=== PATIENT | female | born 1990 | race American Indian/Alaskan Native ===

== ENCOUNTER 2017-12-15 16:45 | Emergency (ER) | payer SELFPAY ==
[2017-12-15 16:54] VITALS: BP 115/87
[2017-12-15] MEDS ORDERED: ZOFRAN ODT PO ONE (18:18)
[2017-12-15] MEDS ORDERED: NORCO 7.5/325 PO ONE (18:18)
[2017-12-15] MEDS ORDERED: TRIMOX PO ONE (18:18)
--- NOTE | 2017-12-15 18:23 | Emergency Department Report ---
ED ENT HPI - General Chief complaint: Dental/Oral Stated complaint: FACIAL EDEMA Time Seen by Provider: 12/15/17 18:18 Source: patient Mode of arrival: Ambulatory Limitations: No Limitations - History of Present Illness Initial comments: This is a 27 y.o. female that presents with left upper tooth pain and left side facial swelling for 2 days. Patient reports pain increased yesterday. She is taking tylenol for pain with no improvement of symptoms. Pain is worse with chewing. Denies difficulty swallowing, drooling, chest pain, and SOB. MD complaint: tooth pain -: days(s) (2) Location: tooth # (13) Severity: severe Severity scale (0 -10): 10 Quality: stabbing, aching, constant Consistency: constant Improves with: none Worsens with: eating Context- Dental: history of dental caries Associated Symptoms: toothache (Left upper #13 toothache) - Related Data Previous Rx's Medication Instructions Recorded Last Taken Type Amoxicillin 500 mg PO BID 10 Days #20 capsule 12/15/17 Unknown Rx traMADol [Ultram 50 MG tab] 50 mg PO Q6HR PRN #20 tablet 12/15/17 Unknown Rx Allergies Allergy/AdvReac Type Severity Reaction Status Date / Time No Known Allergies Allergy Unverified 12/15/17 16:50 ED Dental HPI - General Chief complaint: Dental/Oral Stated complaint: FACIAL EDEMA Time Seen by Provider: 12/15/17 18:18 Source: patient Mode of arrival: Ambulatory Limitations: No Limitations - Related Data Previous Rx's Medication Instructions Recorded Last Taken Type Amoxicillin 500 mg PO BID 10 Days #20 capsule 12/15/17 Unknown Rx traMADol [Ultram 50 MG tab] 50 mg PO Q6HR PRN #20 tablet 12/15/17 Unknown Rx Allergies Allergy/AdvReac Type Severity Reaction Status Date / Time No Known Allergies Allergy Unverified 12/15/17 16:50 ED Review of Systems ROS: Stated complaint: FACIAL EDEMA Other details as noted in HPI Constitutional: denies: chills, fever ENT: dental pain (left upper tooth pain). denies: ear pain, throat pain, hearing loss, epistaxis, congestion Respiratory: denies: cough, shortness of breath, SOB with exertion, wheezing Cardiovascular: denies: chest pain, palpitations, syncope Gastrointestinal: denies: abdominal pain, nausea, vomiting, diarrhea, constipation Neurological: denies: headache, weakness, numbness, paresthesias Psychiatric: denies: anxiety, depression ED Past Medical Hx - Past Medical History Previous Medical History?: Yes Additional medical history: Right breast lump - Surgical History Past Surgical History?: Yes Hx Breast Surgery: Yes (Right breast lump removed) - Social History Smoking Status: Never Smoker Substance Use Type: Alcohol, Non Opiate Pain - Medications Home Medications: Home Medications Medication Instructions Recorded Confirmed Last Taken Type Amoxicillin 500 mg PO BID 10 Days #20 capsule 12/15/17 Unknown Rx traMADol [Ultram 50 MG tab] 50 mg PO Q6HR PRN #20 tablet 12/15/17 Unknown Rx ED Physical Exam - General Limitations: No Limitations General appearance: alert, in no apparent distress - ENT ENT exam: Present: mucous membranes moist, other (#13 black tooth discoloration , 4-5 mm abscess on buccal space, left side facial swelling) - Neck Neck exam: Present: normal inspection, full ROM. Absent: lymphadenopathy - Respiratory Respiratory exam: Present: normal lung sounds bilaterally. Absent: respiratory distress, wheezes, rales, rhonchi, stridor - Cardiovascular Cardiovascular Exam: Present: regular rate, normal rhythm, normal heart sounds. Absent: systolic murmur, diastolic murmur, rubs, gallop - GI/Abdominal GI/Abdominal exam: Present: soft, normal bowel sounds. Absent: distended, tenderness, guarding, rebound, rigid - Neurological Exam Neurological exam: Present: alert, oriented X3, normal gait - Psychiatric Psychiatric exam: Present: normal affect, normal mood ED Course Vital Signs 12/15/17 16:50 Temperature 99.5 F Pulse Rate 112 H Respiratory 18 Rate Blood Pressure 115/87 O2 Sat by Pulse 98 Oximetry ED Medical Decision Making - Medical Decision Making This is a 27-year-old female that presents with tooth ache and left side facial swelling for 2 days. Patient is stable and was examined by me. Given norco po once, zofran ODT 8 mg po, and amoxicillin 500 mg po once in ER. Susceptible of dental abscess and dental caries. Discussed plan with patient. She agreed with ER plan. Discharged home with amoxicillin 500 mg po bid x 10 days and tramadol 50 mg po q6h PRN. Follow up with dentist and referral to [facility]. Critical care attestation.: If time is entered above; I have spent that time in minutes in the direct care of this critically ill patient, excluding procedure time. ED Disposition Clinical Impression: Dental caries, Swelling of left side of face, Toothache Disposition: TO HOME OR SELFCARE Is pt being admited?: No Does the pt Need Aspirin: No Condition: Stable Instructions: Dental Caries (ED), Toothache (ED) Additional Instructions: Complete full course of amoxicillin antibiotic as prescribed for 10 days. Take tramadol every 6 hours for pain as needed. Do not drink alcohol while taking antibiotics and for 24 hours after completion of antibiotics. Follow up with Dentist in 24-72 hours. Prescriptions: Amoxicillin 500 mg PO BID 10 Days #20 capsule traMADol [Ultram 50 MG tab] 50 mg PO Q6HR PRN #20 tablet PRN Reason: Pain Referrals: [facility] [Outside] - 3-5 Days [facility] [Outside] - 3-5 Days [facility] [Outside] - 3-5 Days [facility] [Outside] - 3-5 Days [facility] [Outside] - 3-5 Days Time of Disposition: 18:28 Print Language: LIBERIAN
== END 2017-12-15 18:48 | disposition home or self-care (01) ==
LOC: ED 16:45
DX: K02.9 Dental caries, unspecified (principal)
CPT/HCPCS: 99282; Q0162